=== PATIENT | male | born 1980 | race Caucasian/White ===

== ENCOUNTER 2020-08-17 07:56 | Emergency (ER) | payer MEDICAID ==
[2020-08-17 08:04] VITALS: BP 151/104
[2020-08-17] MEDS ORDERED: ACETAMINOPHEN 325 MG TABLET PO ONE (09:49)
[2020-08-17] MEDS ORDERED: PENICILLIN G BENZATHINE 1.2 MILLION UNIT/2 ML DISP.SYRIN IM ONE (11:27)
[2020-08-17] MEDS ORDERED: DEXAMETHASONE SOD PHOS INJ 10 MG/1 ML VIAL IM ONE (11:27)
--- NOTE | 2020-08-17 11:33 | ER Document Report ---
ED ENT - General Chief Complaint: Sore Throat Stated Complaint: HEADACHE, SORE THROAT Time Seen by Provider: 08/17/20 11:04 Primary Care Provider: [facility] [Provider Group] - Follow up as needed - HPI Notes: Patient is a 40-year-old male with a history of migraines who presents with sore throat that began last night. States he can tell that his tonsils are enlarged which made him concerned and caused him to come to the ED. patient states he is able to tolerate fluids and oral secretions but does report pain with swallowing. Patient reports sinus drainage and fever but denies cough, nausea, vomiting, chest pain, shortness of breath, and abdominal pain. He states he has also had a headache which is typical of his migraines but states it is improving and he is taking his medication as prescribed. 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 Patient reports tobacco use and currently smokes half a pack a day. He denies any alcohol use. - Related Data Allergies/Adverse Reactions: codeine Allergy (Verified 08/17/20 09:40) Past Medical History - General Information source: Patient - Social History Smoking Status: Current Every Day Smoker Chew tobacco use (# tins/day): No Frequency of alcohol use: None Drug Abuse: None Family History: Reviewed & Not Pertinent Patient has homicidal ideation: No Review of Systems - Review of Systems Constitutional: No symptoms reported EENT: See HPI Cardiovascular: No symptoms reported Respiratory: No symptoms reported Gastrointestinal: No symptoms reported Genitourinary: No symptoms reported Male Genitourinary: No symptoms reported Musculoskeletal: No symptoms reported Skin: No symptoms reported Hematologic/Lymphatic: No symptoms reported Neurological/Psychological: See HPI Physical Exam - Vital signs Vitals: Temp Pulse Resp BP Pulse Ox 99.0 F 120 H 16 151/104 H 97 08/17/20 08:00 08/17/20 08:00 08/17/20 08:00 08/17/20 08:00 08/17/20 08:00 - Notes Notes: PHYSICAL EXAMINATION: VITALS: Vitals reviewed and within normal limits. GENERAL: Well-appearing, well-nourished and in no acute distress. HEAD: Atraumatic, normocephalic. EYES: Pupils equal, round, and reactive to light, extraocular movements intact, sclera anicteric, conjunctiva are normal. ENT: Nares patent. Moist mucous membranes. Bilateral tonsillar hypertrophy with visible exudates. NECK: Normal range of motion, supple with left anterior cervical lymphadenopathy. LUNGS: Breath sounds clear to auscultation bilaterally and equal. No wheezes, rales, or rhonchi. HEART: Regular, rate, and rhythm without murmurs. EXTREMITIES: Normal range of motion, no pitting or edema. No cyanosis. NEUROLOGICAL: No focal neurological deficits. Moves all extremities spontaneously and on command. PSYCH: Normal mood, normal affect. SKIN: Warm, Dry, normal turgor, no rashes or lesions noted. Course - Re-evaluation Re-evalutation: Presentation of one day of sore throat in an otherwise well-appearing patient. Rapid strep is negative. However, based on presentation, examination and centor score of 3, I will treat the patient with antibiotics. History and exam are not consistent with a retropharyngeal abscess or peritonsillar abscess. Airway is patent. No difficulty handling oral secretions. Vitals within normal limits. Patient has been treated with an IM dose of penicillin and decadron. At this time will discharge with return precautions and follow-up recommendations. Verbal discharge instructions given a the bedside and opportunity for questions given. Medication warnings reviewed. Patient is in agreement with this plan and has verbalized understanding of return precautions and the need for primary care follow-up in the next week. - Vital Signs Vital signs: Temp Pulse Resp BP Pulse Ox 99.0 F 120 H 16 151/104 H 97 08/17/20 08:00 08/17/20 08:00 08/17/20 08:00 08/17/20 08:00 08/17/20 08:00 - Laboratory Results Critical Laboratory Results Reviewed: No Critical Results - Radiology Results Critical Radiology Results Reviewed: No Critical Results Discharge - Discharge Clinical Impression: Sore throat, Strep pharyngitis Condition: Stable Disposition: HOME, SELF-CARE Additional Instructions: You have been diagnosed with strep throat based on your presentation. You have been treated with a dose of penicillin here in the emergency department and do not need any additional antibiotics. You have also been given a dose of steroids to help with your throat discomfort. Please continue to take ibuprofen 600 mg every 6 hours or Tylenol 1000 mg every 6 hours as needed for throat discomfort. You can also gargle with salt water. Continue to drink plenty of fluids. Follow-up with your primary care doctor in the next several days. Return if you become unable to swallow, have difficulty breathing, pass out, have persistent vomiting that prevents you from being able to tolerate fluids, or have any other symptoms that are concerning to you. Referrals: [facility] [Provider Group] - Follow up as needed
== END 2020-08-17 12:45 | disposition home or self-care (01) ==
LOC: ER 07:56
DX: J02.0 Streptococcal pharyngitis (principal); R51.9 Headache, unspecified; F17.200 Nicotine dependence, unspecified, uncomplicated; Z88.6 Allergy status to analgesic agent
CPT/HCPCS: 99284; 96372; 87070; 87880; J0561; J1100